=== PATIENT | male | born 1965 | race Caucasian/White ===

== ENCOUNTER 2018-10-29 06:38 | Emergency (ER) | payer BC ==
[~2018-10-29] VITALS: Ht 180.3 cm; Wt 77.1 kg
[2018-10-29 06:46] VITALS: Ht 180.3 cm; Wt 77.1 kg
[2018-10-29 08:01] LABS: BASOPHIL % 0.4 % (0-2); PLATELET COUNT 224 x10^3mcL (130-400); RED CELL DISTRIBUTION WIDTH 12.5 % (11.5-14.5)
[2018-10-29 08:04] LABS: CALCIUM 9.3 mg/dL (8.5-10.1); CARBON DIOXIDE 27.3 mmol/L (21-32); CHLORIDE SERUM 105 mmol/L (98-107); CREATININE SERUM 0.9 mg/dL (0.7-1.3); GFR1 > 60 mL/min; GLUCOSE SERUM 100 mg/dL (74-106); POTASSIUM SERUM 4.5 mmol/L (3.5-5.1); SODIUM SERUM 140 mmol/L (136-145)
[2018-10-29 08:10] LABS: ALBUMIN 3.9 g/dL (3.4-5.0); ALKALINE PHOSPHATASE 69 U/L (46-116); ALT/SGPT 29 U/L (16-63); AST/SGOT 10 U/L (15-37); TOTAL PROTEIN, SERUM 7.1 g/dL (6.4-8.2)
[2018-10-29 09:45] VITALS: BP 121/81
== END 2018-10-29 09:45 | disposition home or self-care (01) ==
LOC: ED 06:38
PROVIDERS: Emergency Medicine
DX: H40.10X0 Unspecified open-angle glaucoma, stage unspecified (principal); S05.8X1A Other injuries of right eye and orbit, initial encounter; Z88.0 Allergy status to penicillin; X58.XXXA Exposure to other specified factors, initial encounter; Y93.89 Activity, other specified; Y92.89 Other specified places as the place of occurrence of the external cause; Y99.8 Other external cause status
CPT/HCPCS: J1120; J2405; J3010